=== PATIENT | female | born 1995 | race Caucasian/White ===

== ENCOUNTER 2017-08-07 16:36 | Emergency (ER) | payer OTHER ==
[~2017-08-07] VITALS: Ht 172.7 cm; Wt 59.0 kg
[~2017-08-07 16:36] MED LIST: KETO10TA2 PO; NAPR500T14 PO
== END 2017-08-07 23:40 ==
LOC: ER 16:36
DX: B34.9 Viral infection, unspecified (principal); K29.70 Gastritis, unspecified, without bleeding

== ENCOUNTER 2018-03-19 12:16 | Emergency (ER) | payer OTHER ==
[~2018-03-19] VITALS: Ht 172.7 cm; Wt 57.6 kg
== END 2018-03-19 14:29 | disposition home or self-care (01) ==
LOC: ER 12:16
DX: B34.9 Viral infection, unspecified (principal)

== ENCOUNTER → 2018-08-09 10:25 | Outpatient (CLI) | payer OTHER | END | disposition home or self-care (01) | LOC: LAB 10:25 | DX: E78.49 Other hyperlipidemia (principal); R42 Dizziness and giddiness; D64.89 Other specified anemias; Z00.00 Encounter for general adult medical examination without abnormal findings ==

== ENCOUNTER 2018-12-01 09:46 | Emergency (ER) | payer OTHER ==
[~2018-12-01] VITALS: Ht 172.7 cm; Wt 58.1 kg
== END 2018-12-01 12:24 | disposition home or self-care (01) ==
LOC: ER 09:46
DX: J11.1 Influenza due to unidentified influenza virus with other respiratory manifestations (principal)

== ENCOUNTER 2019-04-02 12:21 | Emergency (ER) | payer OTHER ==
[~2019-04-02] VITALS: Ht 170.2 cm; Wt 56.7 kg
== END 2019-04-02 19:58 | disposition home or self-care (01) ==
LOC: ER 12:21 → EMR PED 12:40 → ER 19:58
DX: K52.9 Noninfective gastroenteritis and colitis, unspecified (principal); E86.0 Dehydration